=== PATIENT | female | born 1990 | race Caucasian/White ===

== ENCOUNTER 2021-02-24 14:01 | Inpatient (IN) | payer OTHER, SELFPAY ==
[~2021-02-24] VITALS: Ht 154.9 cm; Wt 80.7 kg
[2021-02-24] MEDS ORDERED: PNV91TAB8 PO (14:21)
[2021-02-24] MEDS ORDERED: CARBOPROST 250 MCG/ML AMP IM PRN (14:25)
[2021-02-24] MEDS ORDERED: OXYTOCIN 10 UNITS/ML VIAL IM SCH (14:25)
[2021-02-24] MEDS ORDERED: AMPICILLIN 2,000 MG in NACL 0.9% MINI-BAG PLUS 100 ML IV SCH (14:25)
[2021-02-24] MEDS ORDERED: METHYLERGONOVINE 0.2 MG/ML AMP IM PRN (14:25)
[2021-02-24] MEDS: LACTATED RINGERS 1,000 ML IV SCH (15:20)
[2021-02-24 15:49] LABS: BASOPHILS % (AUTO) 0.4 % (0.0-2.0); EOSINOPHILS # (AUTO) 0.1 K/uL (0-0.4); EOSINOPHILS % (AUTO) 0.6 % (0.0-4.0); HEMOGLOBIN 12.7 g/dL (12.0-16.0); LYMPHOCYTES # (AUTO) 1.2 K/uL (2.5-16.5); LYMPHOCYTES % (AUTO) 12.2 % (20.5-51.1); MEAN CORPUSCULAR HEMOGLOBIN 31 pg (27-31); MEAN CORPUSCULAR HGB CONC 34 g/dL (33-37); MEAN CORPUSCULAR VOLUME 93.1 fL (80-94); MONOCYTES # (AUTO) 1.2 K/uL (0.8-1.0); MONOCYTES % (AUTO) 11.5 % (1.7-9.3); NEUTROPHILS # (AUTO) 7.6 K/uL (1.8-7.7); NEUTROPHILS % (AUTO) 75.3 % (42.2-75.2); PLATELET COUNT (AUTO) 250 K/uL (140-450); RED BLOOD CELL COUNT(AUTO) 4.09 MIL/uL (4.20-5.40); RED CELL DISTRIBUTION WIDTH 12.5 % (11.6-13.7); WHITE BLOOD COUNT (AUTO) 10.1 K/uL (4.8-10.8)
[2021-02-24 15:52] LABS: BILIRUBIN,URINE NEGATIVE (NEGATIVE); BLOOD, URINE NEGATIVE (NEGATIVE); LEUKOCYTE ESTERASE ,URINE 1+ (NEGATIVE); NITRITE, URINE NEGATIVE (NEGATIVE); PH,URINE 6.5 (5.0-9.0); UGLUCOSE NEGATIVE (NEGATIVE)
--- NOTE | 2021-02-24 15:59 | NUR ---
PATIENT HAS BEEN SCREENED AND CATEGORIZED LOW NUTRITION RISK. PATIENT WILL BE SEEN WITHIN 7 DAYS OF ADMISSION. 03/03/[address]
[2021-02-24] MEDS ORDERED: AMPICILLIN 2,000 MG VIAL ONE (16:00)
[2021-02-24 16:17] LABS: APPEARANCE,URINE HAZY (CLEAR)
[2021-02-24 16:20] LABS: COLOR,URINE STRAW (YELLOW); RBC,URINE NONE SEEN /HPF (0-5); WBC,URINE 0-5 /HPF (0-5)
[2021-02-24 16:26] LABS: ALBUMIN 2.9 g/dL (3.4-5.0); ANION GAP 12.5 (8-16); CARBON DIOXIDE 23.9 mmol/L (21-32); CREATININE 0.6 mg/dL (0.6-1.3); POTASSIUM 3.4 mmol/L (3.5-5.1); TOTAL BILIRUBIN 0.5 mg/dL (0.0-1.0)
[2021-02-24] MEDS ORDERED: MISOPROSTOL 25 MCG TAB ONE (16:40)
[2021-02-24 18:07] VITALS: BP 117/73
[2021-02-24] MEDS ORDERED: AMPICILLIN 1,000 MG VIAL ONE (20:27)
[2021-02-24] MEDS: AMPICILLIN 1,000 MG in NACL 0.9% MINI-BAG PLUS 50 ML IV SCH (20:31)
[2021-02-25] MEDS: LACTATED RINGERS 1,000 ML IV SCH ×2 (00:20→09:37)
[2021-02-25] MEDS ORDERED: AMPICILLIN 1,000 MG VIAL ONE ×4 (02:14→20:56)
[2021-02-25] MEDS: AMPICILLIN 1,000 MG in NACL 0.9% MINI-BAG PLUS 50 ML IV SCH (02:38)
[2021-02-25] MEDS: MISOPROSTOL 25 MCG TAB VG SCH ×4 (03:08→21:43)
[2021-02-25] MEDS: AMPICILLIN 1,000 MG in NACL 0.9% 50 ML IV SCH ×3 (08:20→21:02)
[2021-02-26] MEDS ORDERED: AMPICILLIN 1,000 MG VIAL ONE ×4 (02:32→20:15)
[2021-02-26] MEDS: AMPICILLIN 1,000 MG in NACL 0.9% 50 ML IV SCH ×4 (02:37→20:20)
[2021-02-26] MEDS: MISOPROSTOL 25 MCG TAB VG SCH (03:25)
[2021-02-26] MEDS ORDERED: ONDANSETRON 4 MG/2 ML VIAL IVP PRN (03:30)
[2021-02-26] MEDS ORDERED: MORPHINE SULFATE 5 MG/ML VIAL IVP PRN (03:30)
[2021-02-26] MEDS ORDERED: OXYTOCIN 20 UNITS/LR PREMIX 1,000 ML IV ONE (10:11)
[2021-02-26] MEDS: LACTATED RINGERS 1,000 ML IV SCH ×3 (11:22→21:59)
[2021-02-26] MEDS ORDERED: ROPIVACAINE 0.2%/NS PREMIX 200 ML EPI ONE (11:29)
[2021-02-26] MEDS ORDERED: ROPIVACAINE 0.2%/NS PREMIX 100 ML EPI SCH (12:00)
[2021-02-27] MEDS ORDERED: AMPICILLIN 1,000 MG VIAL ONE ×4 (00:39→13:00)
[2021-02-27] MEDS: AMPICILLIN 1,000 MG in NACL 0.9% 50 ML IV SCH ×4 (00:44→13:08)
[2021-02-27] MEDS ORDERED: ROPIVACAINE 0.2%/NS PREMIX 200 ML EPI ONE (02:13)
[2021-02-27] MEDS: LACTATED RINGERS 1,000 ML IV SCH (14:38)
[2021-02-27] MEDS ORDERED: METHYLERGONOVINE 0.2 MG/ML AMP ONE (17:38)
[2021-02-27] MEDS ORDERED: LIDOCAINE 1% 500 MG/50 ML VIAL ONE (17:41)
[2021-02-27] MEDS ORDERED: MISOPROSTOL 200 MCG TAB ONE (17:47)
[2021-02-27] MEDS ORDERED: OXYTOCIN 10 UNITS/ML VIAL IM PRN (18:05)
[2021-02-27] MEDS ORDERED: BENZOCAINE/MENTHOL 20%-0.5% 60 GM CAN TP PRN (18:05)
[2021-02-27] MEDS ORDERED: MEASLES, MUMPS, AND RUBELLA 1 VIAL SQVAC ONE (18:05)
[2021-02-27] MEDS ORDERED: METHYLERGONOVINE 0.2 MG/ML AMP IM PRN (18:05)
[2021-02-27] MEDS ORDERED: oxyCODONE/APAP 5/325 MG 1 TAB TAB PO PRN (18:05)
[2021-02-27] MEDS ORDERED: METHYLERGONOVINE 0.2 MG TAB PO PRN (18:05)
[2021-02-27] MEDS ORDERED: oxyCODONE/APAP 5/325 MG 1 TAB TAB ONE (18:07)
[2021-02-27] MEDS ORDERED: OXYTOCIN 20 UNITS/LR PREMIX 1,000 ML IV ONE (18:07)
[2021-02-28 06:11] LABS: BASOPHILS % (AUTO) 0.1 % (0.0-2.0); EOSINOPHILS # (AUTO) 0.1 K/uL (0-0.4); EOSINOPHILS % (AUTO) 0.3 % (0.0-4.0); HEMATOCRIT 27.8 % (36-48); HEMOGLOBIN 9.4 g/dL (12.0-16.0); LYMPHOCYTES # (AUTO) 1.4 K/uL (2.5-16.5); LYMPHOCYTES % (AUTO) 6.6 % (20.5-51.1); MEAN CORPUSCULAR HEMOGLOBIN 31 pg (27-31); MEAN CORPUSCULAR HGB CONC 34 g/dL (33-37); MEAN CORPUSCULAR VOLUME 92.4 fL (80-94); MONOCYTES # (AUTO) 2.5 K/uL (0.8-1.0); MONOCYTES % (AUTO) 12.3 % (1.7-9.3); NEUTROPHILS # (AUTO) 16.6 K/uL (1.8-7.7); NEUTROPHILS % (AUTO) 80.7 % (42.2-75.2); PLATELET COUNT (AUTO) 206 K/uL (140-450); RED BLOOD CELL COUNT(AUTO) 3.01 MIL/uL (4.20-5.40); RED CELL DISTRIBUTION WIDTH 12.8 % (11.6-13.7); WHITE BLOOD COUNT (AUTO) 20.5 K/uL (4.8-10.8)
[2021-02-28] MEDS ORDERED: MISOPROSTOL 200 MCG TAB PO SCH (06:50)
[2021-02-28] MEDS: IBUPROFEN 800 MG TAB PO PRN ×2 (10:20→18:41)
[2021-02-28] MEDS ORDERED: bisacodyL 5 MG TABEC PO PRN (17:50)
[2021-03-01] MEDS: IBUPROFEN 800 MG TAB PO PRN ×2 (07:32→15:58)
== END 2021-03-01 17:50 | disposition home or self-care (01) | DRG 560 ==
LOC: MLD 14:01 → MFCC 02-27 21:30
PROVIDERS: ADMIT Obstetrics & Gynecology; ATTEND Obstetrics & Gynecology
PROC: 10E0XZZ Delivery of Products of Conception, External Approach (ICD-10-PCS; principal; 2021-02-27)
PROC: 0W8NXZZ Division of Female Perineum, External Approach (ICD-10-PCS; 2021-02-27)
PROC: 3E0DXGC Introduction of Other Therapeutic Substance into Mouth and Pharynx, External Approach (ICD-10-PCS; 2021-02-27)
PROC: 10907ZC Drainage of Amniotic Fluid, Therapeutic from Products of Conception, Via Natural or Artificial Opening (ICD-10-PCS; 2021-02-27)
PROC: 3E0R3BZ Introduction of Anesthetic Agent into Spinal Canal, Percutaneous Approach (ICD-10-PCS; 2021-02-27)
PROC: 00HU33Z Insertion of Infusion Device into Spinal Canal, Percutaneous Approach (ICD-10-PCS; 2021-02-27)
PROC: 0KQM0ZZ Repair Perineum Muscle, Open Approach (ICD-10-PCS; 2021-02-27)
DX: O76 Abnormality in fetal heart rate and rhythm complicating labor and delivery (principal); Z37.0 Single live birth; O70.1 Second degree perineal laceration during delivery; O77.0 Labor and delivery complicated by meconium in amniotic fluid; O99.824 Streptococcus B carrier state complicating childbirth; Z20.822 Contact with and (suspected) exposure to COVID-19; O90.81 Anemia of the puerperium; Z3A.40 40 weeks gestation of pregnancy
CPT/HCPCS: 36415; 59200; 59409; 76815; 80053; 81001; 85025; 86592; 86886; 86900; 86901; 87086; 90715; J0290; J2001; J2210; J2590; J2795; Q0092

== ENCOUNTER 2022-09-15 18:38 | Inpatient (IN) | payer MEDICAID ==
[~2022-09-15] VITALS: Ht 154.9 cm; Wt 77.1 kg
[~2022-09-15 18:38] MED LIST: PNV91TAB8 PO
[2022-09-15] MEDS ORDERED: METHYLERGONOVINE 0.2 MG/ML AMP IM PRN (19:45)
[2022-09-15] MEDS ORDERED: CARBOPROST 250 MCG/ML AMP IM PRN (19:45)
[2022-09-15] MEDS ORDERED: ONDANSETRON 4 MG/2 ML VIAL IVP PRN (19:45)
[2022-09-15] MEDS ORDERED: OXYTOCIN 20 UNITS/LR PREMIX 1,000 ML IV SCH (20:00)
[2022-09-15] MEDS ORDERED: MORPHINE SULFATE 10 MG/ML VIAL IVP PRN (20:00)
[2022-09-15] MEDS ORDERED: AMPICILLIN 2,000 MG in NACL 0.9% MINI-BAG PLUS 100 ML IV SCH (20:00)
[2022-09-15 20:11] LABS: BASOPHILS % (AUTO) 0.2 % (0.0-2.0); EOSINOPHILS % (AUTO) 0.5 % (0.0-4.0); HEMATOCRIT 35.1 % (36-48); HEMOGLOBIN 12.1 g/dL (12.0-16.0); LYMPHOCYTES # (AUTO) 1.3 K/uL (2.5-16.5); LYMPHOCYTES % (AUTO) 15.8 % (20.5-51.1); MEAN CORPUSCULAR HEMOGLOBIN 31 pg (27-31); MEAN CORPUSCULAR HGB CONC 35 g/dL (33-37); MEAN CORPUSCULAR VOLUME 89.3 fL (80-94); MONOCYTES % (AUTO) 11.5 % (1.7-9.3); PLATELET COUNT (AUTO) 312 K/uL (140-450); RED BLOOD CELL COUNT(AUTO) 3.93 MIL/uL (4.20-5.40); WHITE BLOOD COUNT (AUTO) 8.3 K/uL (4.8-10.8)
[2022-09-15 20:12] LABS: APPEARANCE,URINE CLEAR (CLEAR); BILIRUBIN,URINE NEGATIVE (NEGATIVE); BLOOD, URINE NEGATIVE (NEGATIVE); COLOR,URINE YELLOW (YELLOW); LEUKOCYTE ESTERASE ,URINE NEGATIVE (NEGATIVE); NITRITE, URINE POSITIVE (NEGATIVE); UGLUCOSE NEGATIVE (NEGATIVE)
[2022-09-15] MEDS: LACTATED RINGERS 1,000 ML IV SCH (20:28)
[2022-09-15 20:39] LABS: PROTHROMBIN TIME 9.2 secs (10.8-13.4)
[2022-09-15 20:41] LABS: ANION GAP 18.5 (8-16); CARBON DIOXIDE 20.9 mmol/L (21-32); CREATININE 0.5 mg/dL (0.6-1.3); POTASSIUM 3.4 mmol/L (3.5-5.1); TOTAL BILIRUBIN 0.5 mg/dL (0.0-1.0)
[2022-09-15 20:48] VITALS: BP 110/66
[2022-09-15] MEDS ORDERED: AMPICILLIN 2,000 MG VIAL ONE (21:12)
[2022-09-16] MEDS ORDERED: AMPICILLIN 1,000 MG VIAL ONE ×5 (00:40→16:46)
[2022-09-16] MEDS ORDERED: MISOPROSTOL 25 MCG TAB VG SCH (01:00)
[2022-09-16] MEDS: AMPICILLIN 1,000 MG in NACL 0.9% MINI-BAG PLUS 50 ML IV SCH ×5 (01:01→16:59)
[2022-09-16] MEDS: LACTATED RINGERS 1,000 ML IV SCH ×3 (06:44→15:24)
[2022-09-16] MEDS ORDERED: ROPIVACAINE 0.2%/NS PREMIX 200 ML EPI ONE (10:30)
[2022-09-16] MEDS ORDERED: ROPIVACAINE 0.2%/NS PREMIX 100 ML EPI SCH (10:55)
[2022-09-16] MEDS ORDERED: LIDOCAINE 1% 500 MG/50 ML VIAL ONE (18:42)
[2022-09-16] MEDS ORDERED: LIDOCAINE 1% 500 MG/ 50 ML VIAL INJ SCH (19:40)
[2022-09-16] MEDS ORDERED: OXYTOCIN 10 UNITS/ML VIAL IM PRN (20:45)
[2022-09-16] MEDS ORDERED: METHYLERGONOVINE 0.2 MG TAB PO PRN (20:45)
[2022-09-16] MEDS ORDERED: HYDROcodone/APAP 5/325 MG 1 TAB TAB PO PRN (20:45)
[2022-09-16] MEDS ORDERED: oxyCODONE/APAP 5/325 MG 1 TAB TAB PO PRN (20:45)
[2022-09-16] MEDS ORDERED: TEMAZEPAM 15 MG CAP PO PRN (20:45)
[2022-09-16] MEDS ORDERED: METHYLERGONOVINE 0.2 MG/ML AMP IM PRN (20:45)
[2022-09-16] MEDS ORDERED: MEASLES, MUMPS, AND RUBELLA 1 VIAL SQVAC ONE (20:45)
[2022-09-16] MEDS ORDERED: BENZOCAINE/MENTHOL 20%-0.5% 60 GM CAN TP PRN (20:45)
[2022-09-16] MEDS ORDERED: DOCUSATE SOD/SENNA 50/8.6 MG 1 TAB PO SCH (21:00)
[2022-09-16] MEDS ORDERED: DOCUSATE SOD/SENNA 50/8.6 MG 1 TAB ONE (22:04)
[2022-09-17] MEDS: IBUPROFEN 800 MG TAB PO PRN ×2 (02:54→18:54)
[2022-09-17 06:56] LABS: HEMATOCRIT 33.9 % (36-48); HEMOGLOBIN 11.5 g/dL (12.0-16.0)
--- NOTE | 2022-09-17 09:30 | NUR ---
PATIENT HAS BEEN SCREENED AND CATEGORIZED LOW NUTRITION RISK. PATIENT WILL BE SEEN WITHIN 7 DAYS OF ADMISSION. 09/15/22-09/22/[address]
[2022-09-18] MEDS: IBUPROFEN 800 MG TAB PO PRN (10:37)
== END 2022-09-18 11:45 | disposition home or self-care (01) | DRG 560 ==
LOC: MLD 18:38 → MFCC 09-16 21:06
PROVIDERS: ADMIT Obstetrics & Gynecology; ATTEND Obstetrics & Gynecology
PROC: 10E0XZZ Delivery of Products of Conception, External Approach (ICD-10-PCS; principal; 2022-09-16)
PROC: 3E0P7VZ Introduction of Hormone into Female Reproductive, Via Natural or Artificial Opening (ICD-10-PCS; 2022-09-16)
PROC: 3E033VJ Introduction of Other Hormone into Peripheral Vein, Percutaneous Approach (ICD-10-PCS; 2022-09-16)
PROC: 10907ZC Drainage of Amniotic Fluid, Therapeutic from Products of Conception, Via Natural or Artificial Opening (ICD-10-PCS; 2022-09-16)
PROC: 3E0R3BZ Introduction of Anesthetic Agent into Spinal Canal, Percutaneous Approach (ICD-10-PCS; 2022-09-16)
PROC: 00HU33Z Insertion of Infusion Device into Spinal Canal, Percutaneous Approach (ICD-10-PCS; 2022-09-16)
DX: O80 Encounter for full-term uncomplicated delivery (principal); Z37.0 Single live birth; Z20.822 Contact with and (suspected) exposure to COVID-19; Z3A.39 39 weeks gestation of pregnancy
CPT/HCPCS: 36415; 51702; 59409; 76815; 80053; 81003; 85018; 85025; 85610; 85730; 86592; 86886; 86900; 86901; 87653-90; 90715; J0290; J2001; J2590; J2795; J7120; Q0092